=== PATIENT | female | born 1940 | race Native Hawaiian/Other Pacific Islander ===

== ENCOUNTER 2017-12-01 20:42 | Emergency (ER) | payer MEDICARE ==
[~2017-12-01] VITALS: Ht 157.5 cm; Wt 90.3 kg
--- NOTE | 2017-12-01 21:18 | ED Cough/URI ---
General Stated Complaint: COUGHING Source: patient Exam Limitations: no limitations History of Present Illness Date Seen by Provider: Dec 01, 2017 Time Seen by Provider: 21:16 Initial Comments To ER per private vehicle with reports of a cough. Cough has been present for 10 days And is productive. She also reports purulent/blood tinged nasal secretions. She reports chills but has not measured any fever. She is a type II diabetic controlled by oral medications. She did receive a flu vaccination this year. She is from [place], here visiting family. Timing/Duration: constant Severity/Quality: moderate Associated Symptoms: cough, fever/chills, sinus infection, sore throat Allergies and Home Medications Allergies Uncoded Allergies: PENICILLIN (Allergy, Unknown, 12/01/17) Constitutional: see HPI, chills EENTM: see HPI, nose congestion Respiratory: see HPI, cough Cardiovascular: no symptoms reported Genitourinary: no symptoms reported Musculoskeletal: no symptoms reported Skin: no symptoms reported Psychiatric/Neurological: No Symptoms Reported Past Cwxtljd-Jhcids-Dewnpy Hx Patient Social History Recent Foreign Travel: No Contact w/Someone Who Travel: No Physical Exam Vital Signs Vital Signs - First Documented 12/01/17 21:07 Temp 96.9 Pulse 98 Resp 20 B/P (MAP) 154/87 (109) O2 Delivery Room Air Capillary Refill : General Appearance: WD/WN, no apparent distress Eyes: Bilateral Eye Normal Inspection, Bilateral Eye PERRL, Bilateral Eye EOMI HEENT: PERRL/EOMI, normal ENT inspection Neck: non-tender, full range of motion Respiratory: no respiratory distress, no accessory muscle use, crackles (right lung base) Cardiovascular: regular rate, rhythm, no murmur Gastrointestinal: normal bowel sounds, non tender Neurologic/Psychiatric: alert, normal mood/affect, oriented x 3 Skin: normal color, warm/dry 95% on room air Progress/Results/Core Measures Suspected Sepsis SIRS Temperature: Pulse: Respiratory Rate: Laboratory Tests 12/01/17 21:45: Blood Pressure / Mean: Laboratory Tests 12/01/17 21:45: Results/Orders Lab Results Laboratory Tests Test 12/01/17 21:45 Range/Units Micro Results Microbiology 12/01/17 Influenza Types A,B Antigen ([facility]) - Final, Complete My Orders Orders - ANNETTE POWELL APRN Cbc With Automated Diff (12/01/17 21:15) Basic Metabolic Panel (12/01/17 21:15) Chest Pa/Lat (2 View) (12/01/17 21:15) Influenza A And B Antigens (12/01/17 21:15) Ceftriaxone Injection (Rocephin Injectio (12/01/17 22:00) Dexamethasone Injection (Decadron Inject (12/01/17 22:00) Lidocaine 1% Injection (Xylocaine 1% Inj (12/01/17 22:00) Albuterol/Ipra Inhalation Soln (Duoneb I (12/01/17 22:00) Svn Sm Volume Nebulizer Rt-Rfs (12/01/17 21:52) Benzonatate Capsule (Tessalon Perles) (12/01/17 22:00) Vital Signs/I&O Vital Sign - Last 12Hours 12/01/17 21:07 Temp 96.9 Pulse 98 Resp 20 B/P (MAP) 154/87 (109) O2 Delivery Room Air Capillary Refill : Departure Communication (Admissions) Progress Notes 2152- patient did blow some bloody snot out of the left side of her nose which is where she states it has been coming from, the left side. She states that she has a cough but does keep her awake at night but she also wears a C Pap at night. 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 We'll use Tessalon Perles. Impression Impression: Primary Impression: Bronchitis Additional Impression: Sinusitis Disposition: 01 HOME, SELF-CARE Condition: Stable Departure-Patient Inst. Decision time for Depature: 21:54 Referrals: NO,LOCAL PHYSICIAN (PCP/Family) Primary Care Physician Patient Instructions: Acute Bronchitis, Adult (DC), Sinusitis in Adults Add. Discharge Instructions: 1. Follow-up with your doctor in your hometown as soon as you return home. Take antibiotics as directed. Return to ER for any worsening. Scripts Benzonatate (Tessalon Perle) 100 Mg Capsule 100 MG PO TID, #21 CAP Prov: ANNETTE POWELL [employer] CONSULTANT 12/01/17 Cefdinir (Cefdinir) 300 Mg Capsule 300 MG PO BID, #20 CAP Prov: ANNETTE POWELL [employer] CONSULTANT 12/01/17 ANNETTE POWELL [employer] SK[employer] CONSULTANT Dec 01, 2017 21:18
--- NOTE | 2017-12-01 21:29 | Diagnostic Imaging Report ---
INDICATION: Cough for 10 days. History of breast cancer EXAMINATION: PA and lateral views of the chest. FINDINGS: The heart size and vascularity are normal. Lungs are clear. There is no effusion. There is no acute bony abnormality. IMPRESSION: No acute abnormality is seen. Dictated by: Dictated on workstation # [id number]
[2017-12-01 21:54] LABS: BASOPHILS # (AUTO) 0.1 10^3/uL (0.0-0.1); BASOPHILS % (AUTO) 1 % (0-10); EOSINOPHILS # (AUTO) 0.4 10^3/uL (0.0-0.3); EOSINOPHILS % (AUTO) 4 % (0-10); HEMATOCRIT 43 % (35-52); HEMOGLOBIN 14.5 G/DL (11.5-16.0); LYMPHOCYTES # (AUTO) 2.3 X 10^3 (1.0-4.0); LYMPHOCYTES % (AUTO) 23 % (12-44); MEAN CORPUSCULAR HEMOGLOBIN 27 PG (25-34); MEAN CORPUSCULAR HGB CONC 34 G/DL (32-36); MEAN CORPUSCULAR VOLUME 80 FL (80-99); MEAN PLATELET VOLUME 10.1 FL (7.4-10.4); MONOCYTES # (AUTO) 1.2 X 10^3 (0.0-1.0); MONOCYTES % (AUTO) 12 % (0-12); NEUTROPHILS # (AUTO) 6.1 X 10^3 (1.8-7.8); NEUTROPHILS % (AUTO) 61 % (42-75); PLATELET COUNT 355 10^3/uL (130-400); RED BLOOD COUNT 5.37 10^6/uL (4.35-5.85); WHITE BLOOD COUNT 9.9 10^3/uL (4.3-11.0)
[2017-12-01] MEDS ORDERED: CEFD300C3 PO (21:55)
[2017-12-01] MEDS ORDERED: BENZ-13 PO (21:55)
[2017-12-01] MEDS ORDERED: LIDOCAINE 1% INJ 20 ML (XYLOCAINE) VIAL INJ ONE (22:00)
[2017-12-01] MEDS ORDERED: cefTRIAXone 1 GM (ROCEPHIN) VIAL IM ONE (22:00)
[2017-12-01] MEDS ORDERED: RT-ALBUTEROL/IPRATROPIUM 3 ML (DUONEB) VIAL INH ONE (22:00)
[2017-12-01] MEDS ORDERED: DEXAMETHASONE 10 MG/ML (DECADRON) 1 ML VIAL IM ONE (22:00)
[2017-12-01] MEDS ORDERED: BENZONATATE 100 MG (TESSALON) CAPSULE PO SCH (22:00)
[2017-12-01] MEDS ORDERED: LIDOCAINE 1% INJ 50 ML (XYLOCAINE) VIAL ONE (22:12)
[2017-12-01 22:17] LABS: BUN/CREATININE RATIO 16; CALCIUM 10.2 MG/DL (8.5-10.1); CARBON DIOXIDE 25 MMOL/L (21-32); CHLORIDE 100 MMOL/L (98-107); CREATININE SERUM 0.83 MG/DL (0.60-1.30); GFR ESTIMATED > 60; GLUCOSE 123 MG/DL (70-105); POTASSIUM 3.9 MMOL/L (3.6-5.0); SODIUM 137 MMOL/L (135-145)
[2017-12-01 22:53] VITALS: BP 154/87
== END 2017-12-01 22:53 | disposition home or self-care (01) ==
LOC: ER 20:46
DX: J40 Bronchitis, not specified as acute or chronic (principal); J32.9 Chronic sinusitis, unspecified; E11.9 Type 2 diabetes mellitus without complications; Z88.0 Allergy status to penicillin
CPT/HCPCS: 36415; 71046; 80048; 85025; 87804; 94640; 96372; 99284